=== PATIENT | female | born 1985 | race Caucasian/White ===

== ENCOUNTER 2021-08-10 10:54 | Emergency (ER) | payer MEDICAID, SELFPAY ==
--- NOTE | 2021-08-10 11:07 | US_ITS ---
WS: [id number] EARLY OBSTETRICAL ULTRASOUND (<14 WEEKS). HISTORY: Vaginal bleeding during . COMPARISON: None available. Single intrauterine gestational sac is identified. No cardiac activity is identified. [place]-rump doris th measures 1.0 cm which corresponds to a gestation of 7w1d. Normal-appearing yolk sac and amnion dem onstrated. No subchorionic hemorrhage. No free fluid. Normal size ovaries with no mass. There is asymmetric thickening and nodularity involving portion of the gestational sac wall. This inv olves approximately 50% of the gestational sac. Wall thickening measures up to 8.4 mm. US/US OB <=14 wk fetus w transvag IMPRESSION: 1. No cardiac activity. Findings consistent with embryonic demise. 2. Asymmetric thickening of a portion of the gestational sac wall. Correlate w ith possible partial molar . Serial follow-up beta hCG levels recommen ded.
[2021-08-10 11:31] VITALS: BP 131/85; PULSE 96; RESP 16; TEMP 36.6; O2SAT 99
--- NOTE | 2021-08-10 11:46 | ED_ITS ---
HPI - General Adult General: Chief complaint: Vaginal Bleeding Stated complaint: and is bleeding Time Seen by Provider: 08/10/21 11:36 History of Present Illness: Patient is a 36-year-old female G3, P2 with LMP in late May presenting to the emergency room with breakthrough vaginal bleeding and passage of clots x1 day. Patient also reports pelvic cramps yesterday night. Patient says that she went through about 3-4 pads yesterday night and and 1 pad this morning. Patient has no nausea/vomiting, fever/chills, new vaginal discharge, urinary complaints, diarrhea, melena/hematochezia. Patient has an appoint with Dr. Mayorga scheduled on 08/17/2021 and has not establish care with this provider. Onset: yesterday night Duration: ongoing Location:home Severity:moderate Associated symptoms: Deny chest pain, dyspnea, nausea, rash, palpitations or vomiting Review of Systems Const: Denies: fever(s) or chills Eyes: Denies: change in vision ENMT: Denies: mouth pain Card: Denies: chest pain or palpitations Resp: Denies: dyspnea or non-productive cough GI: Denies: abdominal pain, nausea, vomiting or diarrhea : Reports: other (vaginal bleeding); Denies: dysuria Musc: Denies: extremity pain Skin/Breast: Denies: rash or new lesions Neuro: Denies: weakness in extremities Psych: Reports: other (Normal mood) Ignacio/Lymph: Denies: easy bruising PFS ED PFSH: Medical History (Updated 08/10/21 @ 11:48 by Jam Paz MD) Abnormal vaginal bleeding Social History (Updated 08/10/21 @ 11:48 by Jam Paz MD) Smoking and tobacco status: never smoked Alcohol intake: never Physical Exam Const: COMMON NORMALS: alert HENMT: COMMON NORMALS: atraumatic HEAD & SCALP: atraumatic MOUTH: moist mucous membranes not abnormal Eye: COMMON NORMALS: EOMs intact bilaterally and conjunctivae normal CONJUNCTIVA: Yes conjunctivae normal Neck/C-Spine: COMMON NORMALS: full ROM and supple Resp: COMMON NORMALS: normal respiratory effort and clear to auscultation bilaterally AUSCULTATION: clear to auscultation bilaterally Cardio: COMMON NORMALS: regular rate RATE: regular rate GI: COMMON NORMALS: Soft to palpation and non-tender PALPATION: Yes Soft to palpation : OTHER: Exam supervised by Jesus. External genitalia wnl. + pool of blood in the vaginal vault without any repooling or active extravasation. Extremity: COMMON NORMALS: full ROM Neuro: SENSORIUM/ORIENTATION: Yes alert MOTOR EXAM: No Abnormal motor strength present and Other motor observations present (no focal motor deficits) Psych: COMMON NORMALS: speech normal SPEECH: Yes normal speech MOOD & AFFECT: Yes euthymic mood Course Vital Signs: Vital signs: Vital Signs Temperature 97.9 F 08/10/21 11:31 Pulse Rate 82 08/10/21 13:37 Respiratory Rate 16 08/10/21 13:37 Blood Pressure 127/82 08/10/21 13:37 Pulse Oximetry 99 08/10/21 13:37 MDM - General Adult Medical Decision Making Patient is a 36-year-old female G3, P2 presenting to the emergency room with new onset of vaginal vaginal bleeding and cramps since yesterday night. On exam, patient is hemodynamically stable. Pelvic site did not show any signs of active bleeding. H&H appears to be stable today. Patient is Rh+, will not give RhoGam. Transvaginal ultrasound showed possible partial molar versus missed . I have given patient follow up with her appointmetn with Dr. Mayorga on 08/17. I discussed the case with Dr. Mayorga who recommended close follow up on Sunday 08/13 with possible D&C on 08/14/2020. Patient aware of this discussion. She is given strict return precautions for any signs of increased vaginal bleeding, regular contraction, passage of clots, lightheadedness, shortness of breath, fatigue, or any new or concerning complaints. Disposition: Discharge. Patient counseled regarding diagnostic impression, treatment plan. Patient given ED strict return precautions to return for continuation, worsening, or development of new symptoms. Instructed to f/u w/ Dr. Mayorga regarding symptoms on 08/13/2020. Patient verbalized understanding. Lab Data : 08/10/21 12:25 08/10/21 12:25 Radiology Impressions Obstetrics Ultrasound 08/10/21 11:07 IMPRESSION: 1. No cardiac activity. Findings consistent with embryonic demise. 2. Asymmetric thickening of a portion of the gestational sac wall. Correlate with possible partial molar . Serial follow-up beta hCG levels recommended. Laboratory Results WBC 7.1 10^3/uL (4.0-10.0) 08/10/21 12:25 RBC 4.21 10^6/uL (4.1-5.3) 08/10/21 12:25 Hgb 13.0 g/dL (11.5-15.3) 08/10/21 12:25 Hct 40.1 % (37.0-47.0) 08/10/21 12:25 MCV 95.2 fl (81-99) 08/10/21 12:25 MCH 30.9 pg (28.0-34.0) 08/10/21 12:25 MCHC 32.4 g/dL (30.0-36.0) 08/10/21 12:25 RDW 13.2 % (12.1-15.1) 08/10/21 12:25 Plt Count 250 10^3/cmm (130-400) 08/10/21 12:25 MPV 10.1 fL (7.4-10.4) 08/10/21 12:25 Neut % (Auto) 56.3 % 08/10/21 12:25 Lymph % (Auto) 20.9 % 08/10/21 12:25 [place] % (Auto) 10.7 % 08/10/21 12:25 Eos % (Auto) 11.2 % 08/10/21 12:25 Baso % (Auto) 0.6 % 08/10/21 12:25 Neut # (Auto) 3.98 10^3/uL (1.8-7.7) 08/10/21 12:25 Lymph # (Auto) 1.5 10^3/uL (0.8-4.8) 08/10/21 12:25 [place] # (Auto) 0.8 10^3/uL (0.2-0.9) 08/10/21 12:25 Eos # (Auto) 0.8 10^3/uL (0.0-0.8) 08/10/21 12:25 Baso # (Auto) 0.0 10^3/uL (0.0-0.1) 08/10/21 12:25 Nucleated RBC % (auto) 0 % 08/10/21 12:25 Nucleated RBCs # 0.0 /100WBC 08/10/21 12:25 Sodium 137 mmol/L (136-145) 08/10/21 12:25 Potassium 4.4 mmol/L (3.5-5.1) 08/10/21 12:25 Chloride 101 mmol/L (98-107) 08/10/21 12:25 Carbon Dioxide 26 mmol/L (22-29) 08/10/21 12:25 Anion Gap 14.4 (5-19) 08/10/21 12:25 BUN 14 mg/dL (6-20) 08/10/21 12:25 Creatinine 0.6 mg/dL (0.5-0.9) 08/10/21 12:25 GFR Calculation 113.8 mL/min (90-130) 08/10/21 12:25 Glucose 82 mg/dL (65-115) 08/10/21 12:25 Calculated Osmolality 284 mOsm/kg (285-295) L 08/10/21 12:25 Calcium 8.9 mg/dL (8.5-10.5) 08/10/21 12:25 Ser , Semi-Qnt 719.30 mIU/mL 08/10/21 12:25 Urine Color Dark yellow (Yellow) 08/10/21 12:35 Urine Appearance Hazy (CLEAR) A 08/10/21 12:35 Urine pH 8 (5-7) H 08/10/21 12:35 Ur Specific [place] 1.010 (1.005-1.030) 08/10/21 12:35 Urine Protein Neg (Negative) 08/10/21 12:35 Urine Glucose (UA) Norm (Normal) 08/10/21 12:35 Urine Ketones Negative (Negative) 08/10/21 12:35 Urine Blood Neg (Negative) 08/10/21 12:35 Urine Nitrate Negative (Negative) 08/10/21 12:35 Urine Bilirubin Neg (Negative) 08/10/21 12:35 Prot Sulfosalicylic Acd Negative (Negative) 08/10/21 12:35 Urine Urobilinogen Norm mg/dL (Negative) 08/10/21 12:35 Ur Leukocyte Esterase Negative (Negative) 08/10/21 12:35 Urine RBC 25-40 /hpf (0-2) H 08/10/21 12:35 Urine WBC 0-4 /hpf (0-5) H 08/10/21 12:35 Ur Squamous Epith Cells 5-10 /hpf (0-5) H 08/10/21 12:35 Amorphous Sediment Not Reportable 08/10/21 12:35 Urine Bacteria 2+ /hpf (NONE) H 08/10/21 12:35 Blood Type A Positive 08/10/21 12:25 Rho(D) Type Positive 08/10/21 12:25 Imaging Data Other Imaging: Radiologist's impression: Launch?Image [facility] [place] [address] Ultrasound Report Signed Patient: Annie Rausch Unit #: [id number] : 1985 Age/Sex: 36 / F ADM Date: 08/10/21 Loc: ER Room/Bed: Attending Dr: Ordering Provider/Ordering MD: Jam Paz MD Date of Service: 08/10/21 Procedure(s): US OB <=14 wk fetus w transvag Accession Number(s): [id number] Report Number: [id number] WS: [id number] ?EARLY OBSTETRICAL ULTRASOUND (<14 WEEKS). HISTORY: Vaginal bleeding during . COMPARISON: None available. Single intrauterine gestational sac is identified. No cardiac activity is identified. [place]-rump length measures 1.0 cm which corresponds to a gestation of 7w1d. Normal-appearing yolk sac and amnion demonstrated. No subchorionic hemorrhage. No free fluid. Normal size ovaries with no mass. There is asymmetric thickening and nodularity involving portion of the gestational sac wall. This involves approximately 50% of the gestational sac. Wall thickening measures up to 8.4 mm. US/US OB <=14 wk fetus w transvag IMPRESSION: ? 1.? No cardiac activity. Findings consistent with embryonic demise. 2.? Asymmetric thickening of a portion of the gestational sac wall. Correlate with possible partial molar . Serial follow-up beta hCG levels recommended. ? Dictated By: Kate Funes DO Signed By: Kate Funes DO Signed Date/Time: 08/10/21 1237 DD/ 1227 Discharge Plan Discharge Patient Disposition: Home Clinical Impression: Abnormal vaginal bleeding, Condition: Stable Discharge Orders: Discharge ED (Routine); Ordered 08/10/21 Ordered By: Jam Paz Referrals: Ariel Islas FNP [Primary Care Provider] - Discharge Diet: Advance as tolerated Discharge Activity: Resume usual activity Patient Instructions: Non-Threatening First Trimester Vaginal Bleed (ED) Activity Restrictions/Additional Instructions: Our bilingual patient support caseworker will have you follow-up with Dr. Martinez in the next August 17. You would be expected to have a phone call with our bilingual patient support caseworker who will put you on the schedule. Come back to the emergency room have any significant bleeding, passage of clots, regular contraction, or any new or concerning complaints Coding Level of Care Code ED Street Flusher Driver for Chg Fwd Exam Comprehensive
[2021-08-10 12:36] LABS: Basophils % 0.6 %; Eosinophils # 0.8 10^3/uL (0.0-0.8); Eosinophils % 11.2 %; Hematocrit 40.1 % (37.0-47.0); Lymphocytes # 1.5 10^3/uL (0.8-4.8); Lymphocytes % 20.9 %; Mean Corpuscular HGB Conc 32.4 g/dL (30.0-36.0); Mean Corpuscular Hemoglobin 30.9 pg (28.0-34.0); Mean Corpuscular Volume 95.2 fl (81-99); Mean Platelet Volume 10.1 fL (7.4-10.4); Monocytes # 0.8 10^3/uL (0.2-0.9); Monocytes % 10.7 %; Neutrophils # 3.98 10^3/uL (1.8-7.7); Neutrophils % 56.3 %; Nucleated Red Blood Cells % 0 %; Platelet Count 250 10^3/cmm (130-400); Red Blood Count 4.21 10^6/uL (4.1-5.3); Red Cell Distribution Width 13.2 % (12.1-15.1); White Blood Count 7.1 10^3/uL (4.0-10.0)
[2021-08-10 12:56] VITALS: BP 110/79; PULSE 73; RESP 18; O2SAT 97
[2021-08-10 13:17] LABS: Anion Gap 14.4 (5-19); Blood Urea Nitrogen 14 mg/dL (6-20); Calcium 8.9 mg/dL (8.5-10.5); Carbon Dioxide 26 mmol/L (22-29); Chloride 101 mmol/L (98-107); Glomerular Filtration Rate 113.8 mL/min (90-130); Glucose 82 mg/dL (65-115); Osmolality Calculated 284 mOsm/kg (285-295); Potassium 4.4 mmol/L (3.5-5.1); Sodium 137 mmol/L (136-145)
[2021-08-10 13:18] LABS: Urine Appearance Hazy (CLEAR); Urine Color Dark Yellow (Yellow)
[2021-08-10 13:19] LABS: Add Urine Microscopic? YES; Bilirubin Urine Neg (Negative); Blood Urine Neg (Negative); Glucose Urine UA Norm (Normal); Ketones Urine Negative (Negative); Leukocyte Esterase Urine Negative (Negative); Nitrate Urine Negative (Negative); Protein Urine Neg (Negative); RBC Urine 25-40 /hpf (0-2); Sulfosalicylic Acid Urine Negative (Negative); Urobilinogen Urine Norm (Negative); WBC Urine 0-4 /hpf (0-5); pH Urine 8 (5-7)
[2021-08-10 13:20] LABS: Add Urine Culture? Yes; Bacteria Urine 2+ /hpf
[2021-08-10 13:37] VITALS: BP 127/82; PULSE 82; RESP 16; O2SAT 99
--- NOTE | 2021-08-10 15:20 | DCPLANNER ---
Addendum entered by Mariposa Hannon 08/24/21 08:21: Patient had a follow up appointment scheduled for 08.17.21 at [facility] - patient did not attend appointment. Original Note: fixed income portfolio manager had message to schedule a follow up appointment for patient with [facility]. fixed income portfolio manager called [facility], spoke with Celestino, gave clinic patients information. Patients information will be printed and reviewed. Clinic will call patient with appointment information.
== END 2021-08-10 13:55 | disposition home or self-care (01) ==
PROVIDERS: Emergency Provider Emergency Medicine; PCP Nurse Practitioner Family
DX: O46.90 Antepartum hemorrhage, unspecified, unspecified trimester (principal); Z3A.00 Weeks of gestation of pregnancy not specified
CPT/HCPCS: 76801; 76817; 80048; 81001; 84702; 85025; 86900; 87086; 99283

== ENCOUNTER → 2021-08-13 12:13 | Outpatient (BNVA) | payer MEDICAID, SELFPAY | PROVIDERS: PCP Nurse Practitioner Family; Visit Provider Obstetrics & Gynecology | DX: N93.9 Abnormal uterine and vaginal bleeding, unspecified (principal) | CPT/HCPCS: 84702 ==